=== PATIENT | male | born 1960 | race Caucasian/White ===

== ENCOUNTER 2016-07-28 22:02 | Emergency (ER) | payer SELFPAY ==
[~2016-07-28] VITALS: Ht 177.8 cm; Wt 90.7 kg
[~2016-07-28 22:02] MED LIST: ACET-868 PO; ASPI81TA2 PO; GABA300C PO; HYDR-3326 PO; NITR0.4T6 SL
[2016-07-28 22:18] VITALS: BP 110/67
== END 2016-07-28 22:36 | disposition home or self-care (01) ==
LOC: ER 22:05
DX: F10.10 Alcohol abuse, uncomplicated (principal); I10 Essential (primary) hypertension; F17.200 Nicotine dependence, unspecified, uncomplicated; Z88.0 Allergy status to penicillin; Z98.890 Other specified postprocedural states; Z59.0 Homelessness; Z79.82 Long term (current) use of aspirin
CPT/HCPCS: 99281; A4606; Z7610; Z7502

== ENCOUNTER 2016-07-31 00:52 | Emergency (ER) | payer SELFPAY ==
[~2016-07-31] VITALS: Ht 177.8 cm; Wt 77.1 kg
[2016-07-31 01:31] VITALS: BP 117/55
[2016-07-31] MEDS ORDERED: ACYCLOVIR 200 MG CAPSULE ONE (01:57)
[2016-07-31] MEDS ORDERED: ACYCLOVIR 200 MG CAPSULE PO ONE (02:00)
== END 2016-07-31 05:51 | disposition home or self-care (01) ==
LOC: ER 00:59
DX: F10.129 Alcohol abuse with intoxication, unspecified (principal); B02.9 Zoster without complications; F10.20 Alcohol dependence, uncomplicated; I10 Essential (primary) hypertension; F17.200 Nicotine dependence, unspecified, uncomplicated; Z88.0 Allergy status to penicillin; Z79.82 Long term (current) use of aspirin
CPT/HCPCS: 99283; A4606; Z7610

== ENCOUNTER 2016-09-19 03:01 | Emergency (ER) | payer SELFPAY ==
[~2016-09-19] VITALS: Ht 167.6 cm; Wt 72.6 kg
[2016-09-19 03:01] VITALS: BP 142/95
--- NOTE | 2016-09-19 03:40 | NUR ---
Patient eloped from facility. ER MD notified.
== END 2016-09-19 03:42 | disposition home or self-care (01) ==
LOC: ER 03:03
DX: M79.675 Pain in left toe(s) (principal); Z79.82 Long term (current) use of aspirin
CPT/HCPCS: 99281; A4606; Z7610; Z7502

== ENCOUNTER 2016-09-21 23:35 | Emergency (ER) | payer SELFPAY ==
[~2016-09-21] VITALS: Ht 177.8 cm; Wt 72.6 kg
[2016-09-21 23:47] VITALS: BP 146/91
[2016-09-22] MEDS ORDERED: ACETAMINOPHEN 325 MG TABLET PO ONE (00:30)
[2016-09-22] MEDS ORDERED: ACETAMINOPHEN ES 500 MG TABLET ONE (00:31)
== END 2016-09-22 00:54 | disposition home or self-care (01) ==
LOC: ER 23:38
DX: M79.672 Pain in left foot (principal); M79.675 Pain in left toe(s); F10.10 Alcohol abuse, uncomplicated; I10 Essential (primary) hypertension; F17.200 Nicotine dependence, unspecified, uncomplicated; Z88.0 Allergy status to penicillin; Z79.82 Long term (current) use of aspirin
CPT/HCPCS: 99282; A4606; Z7610

== ENCOUNTER 2016-12-08 09:27 | Emergency (ER) | payer MEDICAID ==
[~2016-12-08] VITALS: Ht 172.7 cm; Wt 74.8 kg
--- NOTE | 2016-12-08 09:30 | NUR ---
PATIENT BIB RA D/T ETOH. PATIENT IS A/O X 1-2. BREATHING EVEN AND UNLABORED. NO SOB. VITALS STABLE. SAFETY AND COMFORT MEASURES IN PLACE. AWAITING MD ORDERS.
--- NOTE | 2016-12-08 12:45 | NUR ---
(pt. ambulatory with a steady gait. PT. VERBALIZED UNDERSTANDING OF AFTERCARE INSTRUCTIONS.Patient discharged to home in stable condition. Written and verbal after care instructions given. Patient verbalizes understanding of instruction.
[2016-12-08 13:27] VITALS: BP 120/58
== END 2016-12-08 13:29 | disposition home or self-care (01) ==
LOC: ER 09:29
DX: F10.129 Alcohol abuse with intoxication, unspecified (principal); G89.29 Other chronic pain; I10 Essential (primary) hypertension; Z79.82 Long term (current) use of aspirin; Z88.0 Allergy status to penicillin; F17.200 Nicotine dependence, unspecified, uncomplicated
CPT/HCPCS: 99283; A4606; Z7610

== ENCOUNTER 2016-12-11 22:50 | Emergency (ER) | payer MEDICAID ==
--- NOTE | 2016-12-11 23:19 | NUR ---
PT CALLED IN LOBBY SECURITY STATES PT WALKED OUT WITH A STEADY GAIT AND STATED HE DECIDED NOT TO BE SEEN
== END 2016-12-11 23:20 | disposition left against medical advice (07) ==
LOC: ER 22:50
DX: Z53.21 Procedure and treatment not carried out due to patient leaving prior to being seen by health care provider (principal)

== ENCOUNTER 2017-01-29 23:28 | Emergency (ER) | payer MEDICAID ==
[~2017-01-29] VITALS: Ht 172.7 cm; Wt 74.8 kg
[2017-01-30 05:14] VITALS: BP 129/77
--- NOTE | 2017-01-30 05:15 | NUR ---
Patient given written and verbal discharge instructions. Patient verbalizes understanding of instructions. Patient is ambulatory with steady gait. Refuses offer of assisted placement. Patient given list of available shelters in surrounding area. VSS, NAD noted on DC. Denies complaint on DC.
== END 2017-01-30 05:16 | disposition home or self-care (01) ==
LOC: ER 23:30
DX: F10.20 Alcohol dependence, uncomplicated (principal); I10 Essential (primary) hypertension; R79.89 Other specified abnormal findings of blood chemistry; F17.200 Nicotine dependence, unspecified, uncomplicated; Z79.82 Long term (current) use of aspirin; Z88.0 Allergy status to penicillin
CPT/HCPCS: 82962; 99283; A4606; Z7610

== ENCOUNTER 2017-03-07 09:38 | Emergency (ER) | payer MEDICAID, OTHER ==
[~2017-03-07] VITALS: Ht 172.7 cm; Wt 77.1 kg
--- NOTE | 2017-03-07 09:48 | NUR ---
PT BIB RA IN [employer] S/P WITNESSED SZ. NO KO. NO ORAL TRAUMA. C/O MODERATE HEADACHE. A/OX3. SKIN WARM NONDIAPHORETIC. RESP EVEN UNLABORED. REPORTS LAST DRINK YESTERDAY APPROX 1700. LAST DOSE OF DILANTIN LAST NIGHT. IN ER BED 08.
[2017-03-07 10:09] LABS: BASOPHILS # (AUTO) 0.1 /CMM (0.0-0.2); BASOPHILS % (AUTO) 1.5 % (0.0-2.0); EOSINOPHILS # (AUTO) 0.3 /CMM (0.0-0.7); HEMATOCRIT 38 % (39-51); LYMPHOCYTES % (AUTO) 14.7 % (20.0-44.0); MEAN CORPUSCULAR HEMOGLOBIN 35 PG (26.0-33.0); MEAN CORPUSCULAR HGB CONC 34 g/dl (31.0-36.0); MEAN CORPUSCULAR VOLUME 102 fL (80-96); MONOCYTES # (AUTO) 0.8 /CMM (0.1-1.30); MONOCYTES % (AUTO) 12.5 % (2.0-12.0); NEUTROPHILS # (AUTO) 4.5 /CMM (1.8-8.9); NEUTROPHILS % (AUTO) 67.3 % (43.0-81.0); PLATELET COUNT (AUTO) 355 /CMM (150-450); RDW COEFFICIENT OF VARIATION 12.8 (11.5-15.0); RED BLOOD CELL COUNT(AUTO) 3.76 MIL/uL (4.5-6.0); WHITE BLOOD COUNT (AUTO) 6.7 K/uL (4.3-11.0)
[2017-03-07 10:18] LABS: CALCIUM, SERUM 8.5 mg/dL (8.5-10.1); CREATININE 0.8 mg/dL (0.6-1.3); POTASSIUM 4.9 mmol/L (3.5-5.1)
[2017-03-07 10:22] LABS: PHENYTOIN (DILANTIN) 1.9 ug/ml (10.0-20.0)
[2017-03-07 10:24] LABS: ALBUMIN 3.3 g/dL (3.4-5.0); BILIRUBIN,DIRECT 0.1 mg/dL (0.0-0.2); BILIRUBIN,TOTAL 0.2 mg/dL (0.2-1.0); TOTAL PROTEIN, SERUM 7.1 g/dL (6.4-8.2)
--- NOTE | 2017-03-07 11:20 | NUR ---
PT APPEARS SHAKY BUT NO SEIZURE SYMPTOMS ARE NOTED AT THIS TIME. PT TO BE MEDICATED ORDERED.
--- NOTE | 2017-03-07 12:00 | NUR ---
NAD NOTED. RESTING QUIETLY. ALL NEEDS ATTENDED TO.
--- NOTE | 2017-03-07 13:15 | NUR ---
IV removed. Catheter intact and site benign. Pressure and 4x4 applied to site. No bleeding noted. Patient discharged to home in stable condition. Written and verbal after care instructions given. Patient verbalizes understanding of instruction. AMBULATORY WITH STEADY GAIT.
[2017-03-07 13:18] VITALS: BP 133/79
== END 2017-03-07 13:19 ==
LOC: ER 09:40
DX: R56.9 Unspecified convulsions (principal); R79.1 Abnormal coagulation profile; F10.10 Alcohol abuse, uncomplicated; I10 Essential (primary) hypertension; Z88.0 Allergy status to penicillin; F17.200 Nicotine dependence, unspecified, uncomplicated; Z79.82 Long term (current) use of aspirin
CPT/HCPCS: 36415; 80048; 80076; 80185; 85025; 93005; 96361; 96365; 96375; 99285; A4606; J1165; J2060; J7030 ×2; Z7610

== ENCOUNTER 2017-03-30 20:12 | Emergency (ER) | payer OTHER ==
[~2017-03-30] VITALS: Ht 172.7 cm; Wt 61.2 kg
[2017-03-30 21:03] VITALS: BP 136/78
[2017-03-30] MEDS ORDERED: diphenhydrAMINE HCL 50 MG CAPSULE ONE (21:08)
--- NOTE | 2017-03-30 21:11 | NUR ---
50MG OF BENHYDRL PO WAS GIVEN, VERBAL ORDER FROM MD SCHAEFFER
[2017-03-30] MEDS ORDERED: diphenhydrAMINE HCL ELIX 25 MG/10 ML UDC PO ONE (21:30)
== END 2017-03-30 21:24 | disposition home or self-care (01) ==
LOC: ER 20:15
DX: R53.81 Other malaise (principal); I10 Essential (primary) hypertension; F17.200 Nicotine dependence, unspecified, uncomplicated; F10.10 Alcohol abuse, uncomplicated; Z59.0 Homelessness; Z79.82 Long term (current) use of aspirin; Z88.0 Allergy status to penicillin
CPT/HCPCS: 99282; A4606; Q0163; Z7610

== ENCOUNTER 2017-05-21 20:58 | Emergency (ER) | payer OTHER ==
[~2017-05-21] VITALS: Ht 175.3 cm; Wt 72.6 kg
[~2017-05-21 20:58] MED LIST changes: +ASPI-1169 PO; -ASPI81TA2 PO; +NITR0.4T48 SL; -NITR0.4T6 SL
--- NOTE | 2017-05-21 21:00 | NUR ---
PT BIBRA FROM THE STREETS TO ER BED 16. PER REPORT ETOH, NO OBVIOUS TRAUMA NOTED. PT RESPOND TO PAINFUUL STIMULI. GOWNED AND PLACED ON MONITOR W/ STABLE VITALS NOTED. AWAITING MD TERRELL.
--- NOTE | 2017-05-21 22:20 | NUR ---
DR BHAKTA AT BEDSIDE FOR EVAL.
--- NOTE | 2017-05-21 23:41 | NUR ---
REPORT TO CHARGE NURSE ELMO FOR KELLI.
--- NOTE | 2017-05-22 01:02 | NUR ---
PT RESTING QUIETLY, AROUSES TO VOICE. VSS/RESP EVEN UNLABORED.
--- NOTE | 2017-05-22 03:06 | NUR ---
PT RESTING QUIETLY, AROUSES TO VOICE. VSS/RESP EVEN UNLABORED.
--- NOTE | 2017-05-22 05:05 | NUR ---
PT RESTING QUIETLY, AROUSES TO VOICE. VSS/RESP EVEN UNLABORED.
--- NOTE | 2017-05-22 06:45 | NUR ---
PT OFFERED WATER AND ASKED IF HE NEEDED TO USE THE RESTROOM, REFUSED. VSS/RESP EVEN UNLABORED. AROUSES TO VOICE.
[2017-05-22 07:05] VITALS: BP 97/59
--- NOTE | 2017-05-22 07:05 | NUR ---
Patient discharged to home in stable condition. Written and verbal after care instructions given. Patient verbalizes understanding of instruction.
== END 2017-05-22 07:06 | disposition home or self-care (01) ==
LOC: ER 21:01
DX: F10.129 Alcohol abuse with intoxication, unspecified (principal); I10 Essential (primary) hypertension; Z79.82 Long term (current) use of aspirin; Z88.0 Allergy status to penicillin
CPT/HCPCS: 82962-TC; A4606; Z7610

== ENCOUNTER 2017-06-07 00:09 | Emergency (ER) | payer OTHER ==
[~2017-06-07] VITALS: Ht 170.2 cm; Wt 68.5 kg
[2017-06-07 01:10] VITALS: BP 138/85
--- NOTE | 2017-06-07 01:10 | NUR ---
STATES "I JUST WANNA SLEEP HERE AND LATER IN THE MORNING I WILL LEAVE; DONT WANNA SEE A DOCTOR". DENIES ANY SX'S AT THIS TIME.
== END 2017-06-07 01:53 | disposition left against medical advice (07) ==
LOC: ER 00:12
DX: Z53.21 Procedure and treatment not carried out due to patient leaving prior to being seen by health care provider (principal)
CPT/HCPCS: A4606; Z7610

== ENCOUNTER 2017-09-17 01:58 | Emergency (ER) | payer OTHER ==
[~2017-09-17] VITALS: Ht 172.7 cm; Wt 72.6 kg
[~2017-09-17 01:58] MED LIST changes: -HYDR-3326 PO; +HYDR-3974 PO
--- NOTE | 2017-09-17 02:00 | NUR ---
57 YO MALE PT BIBA#[address], PT +ETOH, PATIENT ASSISTED TO ER BED, SKIN WARM AND DRY, RESP EVEN AND UNLABORED. APTIENT PLACED ON TURBINE ASSEMBLER. AWAITING ORDERS FROM PROVIDER, WILL CONTINUE
--- NOTE | 2017-09-17 07:05 | NUR ---
PATIENT RESTING IN ER BED, NO DISTRESS NOTED
--- NOTE | 2017-09-17 10:55 | NUR ---
PATIENT IS AAOX3, AMBULATES WITH STEADY GAIT. PATIENT STATES "I'M READY TO GO". NEURO INTACT.
--- NOTE | 2017-09-17 10:58 | NUR ---
Patient discharged to home in stable condition. Written and verbal after care instructions given. Patient verbalizes understanding of instruction.
[2017-09-17 10:59] VITALS: BP 138/88
== END 2017-09-17 11:00 | disposition home or self-care (01) ==
LOC: ER 02:01
DX: F10.129 Alcohol abuse with intoxication, unspecified (principal); R41.0 Disorientation, unspecified; F17.200 Nicotine dependence, unspecified, uncomplicated; I10 Essential (primary) hypertension; Z79.82 Long term (current) use of aspirin; Z88.0 Allergy status to penicillin
CPT/HCPCS: 99283; A4606; Z7610

== ENCOUNTER 2017-10-12 01:07 | Emergency (ER) | payer OTHER ==
[~2017-10-12] VITALS: Ht 170.2 cm; Wt 74.8 kg
[2017-10-12 01:17] VITALS: BP 139/80
[2017-10-12] MEDS ORDERED: HYDROCODONE/APAP 5/325MG 1 EACH TABLET PO ONE (01:30)
[2017-10-12] MEDS ORDERED: HYDROCODONE/APAP 5/325MG 1 EACH TABLET ONE (01:34)
[2017-10-12 01:57] LABS: CALCIUM, SERUM 8.4 mg/dL (8.5-10.1); CREATININE 0.7 mg/dL (0.6-1.3); POTASSIUM 3.8 mmol/L (3.5-5.1)
[2017-10-12 02:04] LABS: ALBUMIN 3.6 g/dL (3.4-5.0); BILIRUBIN,DIRECT 0.1 mg/dL (0.0-0.2); BILIRUBIN,TOTAL 0.2 mg/dL (0.2-1.0); TOTAL PROTEIN, SERUM 7.4 g/dL (6.4-8.2)
[2017-10-12 02:07] LABS: BASOPHILS # (AUTO) 0.1 /CMM (0.0-0.2); BASOPHILS % (AUTO) 0.8 % (0.0-2.0); HEMATOCRIT 38 % (39-51); LYMPHOCYTES # (AUTO) 3.5 /CMM (0.8-4.8); LYMPHOCYTES % (AUTO) 34.3 % (20.0-44.0); MEAN CORPUSCULAR HGB CONC 34 g/dl (31.0-36.0); MEAN CORPUSCULAR VOLUME 103 fL (80-96); MONOCYTES # (AUTO) 1.1 /CMM (0.1-1.30); MONOCYTES % (AUTO) 11.2 % (2.0-12.0); NEUTROPHILS # (AUTO) 5.1 /CMM (1.8-8.9); NEUTROPHILS % (AUTO) 49.7 % (43.0-81.0); PLATELET COUNT (AUTO) 246 /CMM (150-450); RDW COEFFICIENT OF VARIATION 16.1 (11.5-15.0); RED BLOOD CELL COUNT(AUTO) 3.69 MIL/uL (4.5-6.0); WHITE BLOOD COUNT (AUTO) 10.2 K/uL (4.3-11.0)
== END 2017-10-12 03:00 | disposition home or self-care (01) ==
LOC: ER 01:11
DX: S43.401A Unspecified sprain of right shoulder joint, initial encounter (principal); F10.229 Alcohol dependence with intoxication, unspecified; Z71.6 Tobacco abuse counseling; I10 Essential (primary) hypertension; I48.91 Unspecified atrial fibrillation; Z79.82 Long term (current) use of aspirin; Z88.0 Allergy status to penicillin; X58.XXXA Exposure to other specified factors, initial encounter; Y93.55 Activity, bike riding; Y92.89 Other specified places as the place of occurrence of the external cause; Y99.8 Other external cause status
CPT/HCPCS: 36415; 73030-TC; 80048-TC; 80076-TC; 85025-TC; A4606; G0480; Z7610

== ENCOUNTER 2017-11-03 22:56 | Emergency (ER) | payer OTHER ==
[~2017-11-03] VITALS: Ht 172.7 cm; Wt 72.6 kg
--- NOTE | 2017-11-03 23:07 | NUR ---
RN NOTES PT IN HOSP BED. A/O X2 CONFUSED. SMELLS OF ETOH. NEGATIVE DISTRESS. NEG SOB. STABLE CONDITION. VSS. WILL CONTINUE TO MONITOR. ALL SAFETY MEASURES IN PLACE. CALL LIGHT WITHIN REACH.
--- NOTE | 2017-11-04 01:30 | NUR ---
PT RESTING WELL. NEGATIVE DISTRESS. NEG SOB. SEMIFOWLERS POSITION. VSS. A/OX4. WILL CONTINUE TO MONITOR. ALL SAFETY MEASURES IN PLACE. CALL LIGHT WITHIN REACH.
--- NOTE | 2017-11-04 03:30 | NUR ---
PT A/OX2. RESTING WELL. NEG DISTRESS. VSS. NEG SOB. STABLE CONDITION. SAFETY MEASURES IN PLACE. CALL LIGHT WITHIN REACH.
--- NOTE | 2017-11-04 04:53 | NUR ---
PT STABLE CONDITION. CONTIUES TO REST WELL. A/O X2 CONFUSED. NEG SIGNS OF DISTRESS. VSS. WILL CONTINUE TO MONITOR. SAFETY MEASURES IN PLACE. CALL LIGHT WITHIN REACH.
--- NOTE | 2017-11-04 06:45 | NUR ---
RN NOTES PT IN HOSP BED RESTING WELL. A/O X2 CONFUSED. NEGATIVE DISTRESS. NEG SOB. STABLE CONDITION. VSS. WILL CONTINUE TO MONITOR. ALL SAFETY MEASURES IN PLACE. CALL LIGHT WITHIN REACH.
[2017-11-04 09:30] VITALS: BP 133/77
--- NOTE | 2017-11-04 10:25 | NUR ---
Patient discharged to home in stable condition. Written and verbal after care instructions given. Patient verbalizes understanding of instruction.
== END 2017-11-04 10:27 | disposition home or self-care (01) ==
LOC: ER 22:58
DX: F10.129 Alcohol abuse with intoxication, unspecified (principal); F17.200 Nicotine dependence, unspecified, uncomplicated; R79.89 Other specified abnormal findings of blood chemistry; I10 Essential (primary) hypertension; Z88.0 Allergy status to penicillin; Z79.82 Long term (current) use of aspirin
CPT/HCPCS: 82962-TC; A4606; Z7610

== ENCOUNTER 2017-11-17 01:51 | Emergency (ER) | payer OTHER ==
--- NOTE | 2017-11-17 02:38 | NUR ---
AMBULATED TO RESTROOM WITH STEADY GAIT. STATES "AM OK NOW; JUST GONNA SLEEP HERE"
== END 2017-11-17 02:39 | disposition left against medical advice (07) ==
LOC: ER 01:56
DX: M54.2 Cervicalgia (principal); Z53.21 Procedure and treatment not carried out due to patient leaving prior to being seen by health care provider
CPT/HCPCS: Z7610

== ENCOUNTER 2017-12-22 00:06 | Emergency (ER) | payer OTHER ==
[~2017-12-22] VITALS: Ht 170.2 cm; Wt 79.4 kg
[2017-12-22 00:08] VITALS: BP 102/46
[2017-12-22] MEDS ORDERED: LIDOCAINE VISCOUS 2% UD 15 ML UDC ONE (00:50)
[2017-12-22] MEDS ORDERED: LIDOCAINE VISCOUS 2% UD 15 ML UDC MM ONE (01:00)
== END 2017-12-22 01:42 | disposition home or self-care (01) ==
LOC: ER 00:10
DX: H61.23 Impacted cerumen, bilateral (principal); I10 Essential (primary) hypertension; F17.200 Nicotine dependence, unspecified, uncomplicated; Z79.82 Long term (current) use of aspirin; Z88.0 Allergy status to penicillin
CPT/HCPCS: 69209; 99282; A4606; Z7610

== ENCOUNTER 2018-06-23 23:33 | Emergency (ER) | payer MEDICAID, OTHER ==
[~2018-06-23] VITALS: Ht 170.2 cm; Wt 83.9 kg
--- NOTE | 2018-06-24 00:11 | NUR ---
CALLED IN [facility], NO ANSWER.
--- NOTE | 2018-06-24 01:30 | NUR ---
CALLED IN [facility], NO ANSWER.
[2018-06-24 02:48] VITALS: BP 138/87
== END 2018-06-24 05:49 | disposition home or self-care (01) ==
LOC: ER 23:36
DX: M54.12 Radiculopathy, cervical region (principal); F10.129 Alcohol abuse with intoxication, unspecified; I10 Essential (primary) hypertension; D64.9 Anemia, unspecified; E78.5 Hyperlipidemia, unspecified; F17.200 Nicotine dependence, unspecified, uncomplicated; Z88.0 Allergy status to penicillin; Z59.0 Homelessness; Z79.82 Long term (current) use of aspirin; Z79.899 Other long term (current) drug therapy; Y90.9 Presence of alcohol in blood, level not specified
CPT/HCPCS: 72050; 99283; A4606; Z7610

== ENCOUNTER 2018-08-30 03:17 | Emergency (ER) | payer OTHER ==
--- NOTE | 2018-08-30 04:01 | NUR ---
CALLED PATIENT NAME THREE TIMES, NO RESPONSE. NO PT IN WAITING ROOM. WILL TRY AGAIN AT A LATER TIME
--- NOTE | 2018-08-30 04:48 | NUR ---
CALLED PT'S NAME, PT NOTED SITTING AND SLEEPING IN WAITING ROOM. PT WAS ASKED IF HE WANTS TO BE TRIAGED AND SEEN BY MD. PT SHOOK HIS HEAD AND REMAINED SLEEPING IN WAITING ROOM. FRAMING MILL SUPERVISOR AND MD MADE AWARE.
--- NOTE | 2018-08-30 04:48 | NUR ---
PT REFUSED TO BE TRIAGED
== END 2018-08-30 04:55 | disposition left against medical advice (07) ==
LOC: ER 03:17
DX: Z53.21 Procedure and treatment not carried out due to patient leaving prior to being seen by health care provider (principal)

== ENCOUNTER 2018-09-02 22:16 | Emergency (ER) | payer OTHER ==
--- NOTE | 2018-09-02 22:47 | NUR ---
CALLED IN WAITING ROOM, NO ANSWER.
--- NOTE | 2018-09-02 23:42 | NUR ---
PATIENT CALLED, NO ONE IN THE WAITING ROOM.
--- NOTE | 2018-09-03 01:11 | NUR ---
PATIENT NOT IN THE WAITING ROOM.
== END 2018-09-03 01:13 | disposition left against medical advice (07) ==
LOC: ER 22:29
DX: Z53.21 Procedure and treatment not carried out due to patient leaving prior to being seen by health care provider (principal)

== ENCOUNTER 2018-09-28 01:56 | Emergency (ER) | payer OTHER ==
[~2018-09-28] VITALS: Ht 170.2 cm; Wt 84.4 kg
[2018-09-28 02:08] VITALS: BP 134/76
--- NOTE | 2018-09-28 02:31 | NUR ---
BG 94. MD AWARE.
== END 2018-09-28 06:59 | disposition home or self-care (01) ==
LOC: ER 01:59
DX: F10.129 Alcohol abuse with intoxication, unspecified (principal); I10 Essential (primary) hypertension; F17.200 Nicotine dependence, unspecified, uncomplicated; Y90.9 Presence of alcohol in blood, level not specified; Z88.0 Allergy status to penicillin; Z59.0 Homelessness; Z79.82 Long term (current) use of aspirin
CPT/HCPCS: 82962-TC

== ENCOUNTER 2018-10-09 01:40 | Emergency (ER) | payer OTHER ==
[~2018-10-09] VITALS: Ht 172.7 cm; Wt 83.9 kg
--- NOTE | 2018-10-09 02:00 | NUR ---
BIB SELF FROM STREET. AAOX3. NAD. BREATHING EVEN AND UNLABORED. AMBULATORY. CAME IN FOR HEADACHE 01/05 X 2DAYS. PT APPEARS INTOXICATED. PT STATES THAT HE HAD 2 DRINKS LAST NIGHT. PT TO ER BED 6. AWAITING MD TERRELL
[2018-10-09] MEDS ORDERED: HYDROCODONE/APAP 10/325MG 1 EA TABLET ONE (02:13)
[2018-10-09] MEDS ORDERED: HYDROCODONE/APAP 10/325MG 1 EA TABLET PO ONE (02:30)
--- NOTE | 2018-10-09 03:13 | NUR ---
PT IN BED SLEEPING. NAD NOTED.
--- NOTE | 2018-10-09 05:00 | NUR ---
PT AMBULATED TO BATHROOM WITHOUT ASSISTANCE
--- NOTE | 2018-10-09 06:10 | NUR ---
Patient discharged to home in stable condition. Written and verbal after care instructions given. Patient verbalizes understanding of instruction. Pt ambulatory with a steady gait
[2018-10-09 06:13] VITALS: BP 100/70
== END 2018-10-09 06:14 | disposition home or self-care (01) ==
LOC: ER 01:51
DX: F10.229 Alcohol dependence with intoxication, unspecified (principal); R51 Headache; F17.200 Nicotine dependence, unspecified, uncomplicated; I10 Essential (primary) hypertension; Z88.0 Allergy status to penicillin; Z59.0 Homelessness; Z79.82 Long term (current) use of aspirin; Z79.899 Other long term (current) drug therapy; Y90.9 Presence of alcohol in blood, level not specified

== ENCOUNTER 2018-10-31 23:26 | Emergency (ER) | payer OTHER ==
--- NOTE | 2018-11-01 00:43 | NUR ---
CALLED PT THREE TIMES. NO RESPONSE IN WAITING ROOM.
--- NOTE | 2018-11-01 01:22 | NUR ---
CALLED PT THREE TIMES. NO RESPONSE IN WAITING ROOM.
--- NOTE | 2018-11-01 02:04 | NUR ---
CALLED PT THREE TIMES. NO RESPONSE IN WAITING ROOM.
== END 2018-11-01 02:27 | disposition home or self-care (01) ==
LOC: ER 23:26
DX: Z53.21 Procedure and treatment not carried out due to patient leaving prior to being seen by health care provider (principal)

== ENCOUNTER 2018-11-07 07:30 | Emergency (ER) | payer OTHER ==
[~2018-11-07] VITALS: Ht 167.6 cm; Wt 77.1 kg
[2018-11-07 07:36] VITALS: BP 148/98
--- NOTE | 2018-11-07 07:40 | NUR ---
SEEN AND EXAMINED BY
== END 2018-11-07 08:10 | disposition home or self-care (01) ==
LOC: ER 07:33
DX: L98.8 Other specified disorders of the skin and subcutaneous tissue (principal); F10.20 Alcohol dependence, uncomplicated; I10 Essential (primary) hypertension; I48.91 Unspecified atrial fibrillation; F17.200 Nicotine dependence, unspecified, uncomplicated; Y90.9 Presence of alcohol in blood, level not specified; Z59.0 Homelessness; Z88.0 Allergy status to penicillin; Z79.82 Long term (current) use of aspirin

== ENCOUNTER 2018-11-08 02:22 | Emergency (ER) | payer OTHER ==
[~2018-11-08] VITALS: Ht 175.3 cm; Wt 81.6 kg
--- NOTE | 2018-11-08 05:14 | NUR ---
PT SLEEPING IN [facility]. NO SIGNS OF DISTRESS NOTED. PT VITAL SIGNS WITHIN NORMAL LIMITS. WILL CONT TO MONITOR PT.
--- NOTE | 2018-11-08 08:52 | NUR ---
PATIENT SLEEPING ON BED. NO ACUTE DISTRESS. WILL CONTINUE TO MONITOR
[2018-11-08 12:25] VITALS: BP 132/80
--- NOTE | 2018-11-08 12:30 | NUR ---
Patient discharged to home in stable condition. Written and verbal after care instructions given. Patient verbalizes understanding of instruction. Patient refused to have any referrals. refused to be arranged with transportation. aware and ok
== END 2018-11-08 12:30 | disposition home or self-care (01) ==
LOC: ER 02:27
DX: F10.129 Alcohol abuse with intoxication, unspecified (principal); I10 Essential (primary) hypertension; F17.200 Nicotine dependence, unspecified, uncomplicated; Z88.0 Allergy status to penicillin; Z59.0 Homelessness; Z79.82 Long term (current) use of aspirin; Z79.899 Other long term (current) drug therapy; Y90.9 Presence of alcohol in blood, level not specified

== ENCOUNTER 2018-11-10 19:41 | Emergency (ER) | payer OTHER ==
[~2018-11-10] VITALS: Ht 170.2 cm; Wt 80.7 kg
[2018-11-10 20:27] LABS: BASOPHILS # (AUTO) 0.2 /CMM (0.0-0.2); BASOPHILS % (AUTO) 1.7 % (0.0-2.0); HEMATOCRIT 40 % (39-51); HEMOGLOBIN 13.7 g/dL (13.5-17.5); LYMPHOCYTES # (AUTO) 2.5 /CMM (0.8-4.8); LYMPHOCYTES % (AUTO) 26.2 % (20.0-44.0); MEAN CORPUSCULAR HGB CONC 34 g/dl (31.0-36.0); MEAN CORPUSCULAR VOLUME 101 fL (80-96); MONOCYTES # (AUTO) 1.2 /CMM (0.1-1.30); MONOCYTES % (AUTO) 12.1 % (2.0-12.0); NEUTROPHILS # (AUTO) 5.5 /CMM (1.8-8.9); PLATELET COUNT (AUTO) 269 /CMM (150-450); RED BLOOD CELL COUNT(AUTO) 3.94 MIL/uL (4.5-6.0); WHITE BLOOD COUNT (AUTO) 9.7 K/uL (4.3-11.0)
[2018-11-10] MEDS ORDERED: MAG HYDROX/AL HYDROX/SIMETH 30 ML UDC PO ONE (20:30)
[2018-11-10] MEDS ORDERED: LORAZEPAM 1 MG TABLET PO ONE (20:30)
--- NOTE | 2018-11-10 20:30 | NUR ---
BIB SELF. AAOX3. INTOXICATED. BREATHING EVEN AND UNLABORED. AMBULATORY. C/O SLEEPLESSNESS X 2 DAYS. DENIES CP. -N/V/D. TO ER BED 15. AWAITING MD FOR EVAL.
[2018-11-10 20:35] LABS: CALCIUM, SERUM 8.2 mg/dL (8.5-10.1); CREATININE 0.8 mg/dL (0.6-1.3); POTASSIUM 3.9 mmol/L (3.5-5.1)
[2018-11-10 20:45] LABS: ALBUMIN 3.2 g/dL (3.4-5.0); BILIRUBIN,DIRECT 0.1 mg/dL (0.0-0.2); BILIRUBIN,TOTAL 0.3 mg/dL (0.2-1.0); TOTAL PROTEIN, SERUM 7.6 g/dL (6.4-8.2)
--- NOTE | 2018-11-11 04:22 | NUR ---
PT IN BED SLEEPING. NAD NOTED.
--- NOTE | 2018-11-11 05:53 | NUR ---
PT OK TO DISCHARGE PER DR MARTINEZ. Patient discharged to home in stable condition. Written and verbal after care instructions given. Patient verbalizes understanding of instruction.Patient is awake and alert to self, day, and place. PT ambulatory with a steady gait
[2018-11-11 05:55] VITALS: BP 132/80
== END 2018-11-11 05:55 | disposition home or self-care (01) ==
LOC: ER 19:45
DX: R10.84 Generalized abdominal pain (principal); F10.129 Alcohol abuse with intoxication, unspecified; I10 Essential (primary) hypertension; F17.200 Nicotine dependence, unspecified, uncomplicated; Z88.0 Allergy status to penicillin; Z59.0 Homelessness; Z79.82 Long term (current) use of aspirin; Z79.899 Other long term (current) drug therapy; Y90.8 Blood alcohol level of 240 mg/100 ml or more
CPT/HCPCS: 36415; 80048-TC; 80076-TC; 83690-TC; 85025-TC; G0480

== ENCOUNTER 2018-11-14 22:45 | Emergency (ER) | payer OTHER | END 2018-11-15 01:48 | disposition left against medical advice (07) | LOC: ER 22:48 | DX: Z53.21 Procedure and treatment not carried out due to patient leaving prior to being seen by health care provider (principal) ==

== ENCOUNTER 2018-12-10 15:17 | Emergency (ER) | payer OTHER ==
[~2018-12-10] VITALS: Ht 172.7 cm; Wt 88.5 kg
[2018-12-10] MEDS ORDERED: ONDANSETRON 4 MG TAB.RAPDIS ONE (15:53)
[2018-12-10] MEDS ORDERED: LOPERAMIDE HCL (2 MG CAP) 2 MG CAPSULE PO ONE (15:53)
[2018-12-10] MEDS: LOPERAMIDE HCL (2 MG CAP) 2 MG CAPSULE PO ONE (15:58)
[2018-12-10] MEDS: ONDANSETRON 4 MG TAB.RAPDIS SL ONE (15:58)
--- NOTE | 2018-12-10 15:58 | NUR ---
PT REC'D MEDICATION ORDERED. PT WANTED TO LEAVE. MD IS AWARE. Patient discharged to home in stable condition. Written and verbal after care instructions given. Patient verbalizes understanding of instruction AND RX. PT AMBULATED OUT WITH A STEADY GAIT. VSS
[2018-12-10 16:01] VITALS: BP 123/70
== END 2018-12-10 16:03 | disposition home or self-care (01) ==
LOC: ER 15:17
DX: R11.2 Nausea with vomiting, unspecified (principal); R19.7 Diarrhea, unspecified; F10.129 Alcohol abuse with intoxication, unspecified; I10 Essential (primary) hypertension; F17.200 Nicotine dependence, unspecified, uncomplicated; Z88.0 Allergy status to penicillin; Z59.0 Homelessness; Z79.82 Long term (current) use of aspirin; Z79.899 Other long term (current) drug therapy; Y90.9 Presence of alcohol in blood, level not specified
CPT/HCPCS: 99283; Q0162

== ENCOUNTER 2018-12-21 03:56 | Emergency (ER) | payer OTHER ==
--- NOTE | 2018-12-21 04:16 | NUR ---
CALLED PT IN WAITING ROOM. NO RESPONSE. WILL FOLLOW UP.
--- NOTE | 2018-12-21 04:50 | NUR ---
CALLED PT IN WAITING ROOM. NO RESPONSE. WILL FOLLOW UP.
--- NOTE | 2018-12-21 05:18 | NUR ---
CALLED PT IN WAITING ROOM. NO RESPONSE.
== END 2018-12-21 06:05 | disposition left against medical advice (07) ==
LOC: ER 04:02
DX: Z53.21 Procedure and treatment not carried out due to patient leaving prior to being seen by health care provider (principal)

== ENCOUNTER 2019-01-08 15:12 | Emergency (ER) | payer OTHER ==
[~2019-01-08] VITALS: Ht 172.7 cm; Wt 84.8 kg
[2019-01-08 15:28] VITALS: BP 111/75
[2019-01-08] MEDS ORDERED: IBUPROFEN 600 MG TABLET PO ONE ×2 (15:56→16:00)
[2019-01-08] MEDS ORDERED: ACETAMINOPHEN ES 500 MG TABLET ONE (15:56)
[2019-01-08] MEDS ORDERED: ACETAMINOPHEN ES 500 MG TABLET PO ONE (16:00)
== END 2019-01-08 16:03 | disposition home or self-care (01) ==
LOC: ER 15:12
DX: S93.491A Sprain of other ligament of right ankle, initial encounter (principal); M54.12 Radiculopathy, cervical region; I10 Essential (primary) hypertension; F17.200 Nicotine dependence, unspecified, uncomplicated; Z88.0 Allergy status to penicillin; Z60.2 Problems related to living alone; Z79.899 Other long term (current) drug therapy; Z79.82 Long term (current) use of aspirin; X50.1XXA Overexertion from prolonged static or awkward postures, initial encounter; Y93.89 Activity, other specified; Y92.89 Other specified places as the place of occurrence of the external cause; Y99.8 Other external cause status

== ENCOUNTER 2019-01-18 01:15 | Emergency (ER) | payer OTHER ==
[~2019-01-18] VITALS: Ht 167.6 cm; Wt 90.7 kg
--- NOTE | 2019-01-18 02:23 | NUR ---
TO BED 6 AMBULATORY C/O "I THINK I FELL AND HIT MY HEAD" PT REPORTS ETOH. PT AAOX4 NO ACUTE DISTRESS NOTED, RESP EVEN AND UNLABORED. PUPILS PERRLA. PT ABLE TO MOVE ALL EXTREMITIES WELL WITH BILATERAL EQUAL DOBIE MAN. ER MD AT BEDSIDE TO NIDHI PT.
--- NOTE | 2019-01-18 02:24 | NUR ---
CODY YUAN AT BEDSIDE TO NIDHI GILLESPIE.
--- NOTE | 2019-01-18 02:36 | NUR ---
PT TRASNPORTED TO RADIOLOGY FOR CT.
--- NOTE | 2019-01-18 05:40 | NUR ---
Patient discharged to home in stable condition. Written and verbal after care instructions given. Patient verbalizes understanding of instruction. ambulatory with a steady gait noted. pt aaox4 no acute distress noted, resp even and unlabored.
[2019-01-18 05:41] VITALS: BP 117/62
== END 2019-01-18 05:42 | disposition home or self-care (01) ==
LOC: ER 01:18
DX: R51 Headache (principal); I10 Essential (primary) hypertension; Z88.0 Allergy status to penicillin; F17.200 Nicotine dependence, unspecified, uncomplicated; Z60.2 Problems related to living alone; Z79.82 Long term (current) use of aspirin; Z79.899 Other long term (current) drug therapy; W19.XXXA Unspecified fall, initial encounter; Y93.89 Activity, other specified; Y92.89 Other specified places as the place of occurrence of the external cause; Y99.8 Other external cause status
CPT/HCPCS: 70450-TC; 82962-TC

== ENCOUNTER 2019-01-19 22:48 | Emergency (ER) | payer OTHER ==
[~2019-01-19] VITALS: Ht 172.7 cm; Wt 81.6 kg
[2019-01-19 23:30] VITALS: BP 111/75
--- NOTE | 2019-01-20 00:20 | NUR ---
Patient eloped from facility. ER MD notified.
== END 2019-01-20 01:23 | disposition left against medical advice (07) ==
LOC: ER 22:52
DX: F10.229 Alcohol dependence with intoxication, unspecified (principal); I10 Essential (primary) hypertension; F17.200 Nicotine dependence, unspecified, uncomplicated; Y90.9 Presence of alcohol in blood, level not specified; Z88.0 Allergy status to penicillin; Z60.2 Problems related to living alone; Z79.82 Long term (current) use of aspirin

== ENCOUNTER 2019-03-21 00:26 | Emergency (ER) | payer OTHER ==
[~2019-03-21] VITALS: Ht 171.4 cm; Wt 83.9 kg
--- NOTE | 2019-03-21 02:50 | NUR ---
bib self c/o difficulty breathing "i cant breath at night since they did a scope and biosy of my neck. pt aaox4 no acute distress noted, resp even and unlabored. pending er md pereira.
--- NOTE | 2019-03-21 04:46 | NUR ---
PT SEEN AND EXAMINED BY .
--- NOTE | 2019-03-21 05:00 | NUR ---
PT IS WHEELED TO CT SCAN VIA [facility]
--- NOTE | 2019-03-21 05:56 | NUR ---
Patient discharged to home in stable condition. Written and verbal after care instructions given. Patient verbalizes understanding of instruction. ambulatory with a steady gait noted.
[2019-03-21 06:21] VITALS: BP 125/68
== END 2019-03-21 06:21 | disposition home or self-care (01) ==
LOC: ER 00:29
DX: F10.129 Alcohol abuse with intoxication, unspecified (principal); R59.0 Localized enlarged lymph nodes; K11.5 Sialolithiasis; F17.200 Nicotine dependence, unspecified, uncomplicated; I10 Essential (primary) hypertension; Z88.0 Allergy status to penicillin; Z60.2 Problems related to living alone; Z79.899 Other long term (current) drug therapy; Z79.82 Long term (current) use of aspirin; Y90.9 Presence of alcohol in blood, level not specified
CPT/HCPCS: 70490-TC

== ENCOUNTER 2019-03-23 00:20 | Emergency (ER) | payer OTHER ==
[~2019-03-23] VITALS: Ht 172.7 cm; Wt 86.2 kg
[2019-03-23 00:42] VITALS: BP 132/76
== END 2019-03-23 02:26 | disposition home or self-care (01) ==
LOC: ER 00:23
DX: F10.10 Alcohol abuse, uncomplicated (principal); I10 Essential (primary) hypertension; G40.909 Epilepsy, unspecified, not intractable, without status epilepticus; F17.200 Nicotine dependence, unspecified, uncomplicated; Z88.0 Allergy status to penicillin; Z60.2 Problems related to living alone; Z79.899 Other long term (current) drug therapy; Z79.82 Long term (current) use of aspirin; Y90.9 Presence of alcohol in blood, level not specified

== ENCOUNTER 2019-03-26 21:13 | Emergency (ER) | payer OTHER ==
[~2019-03-26] VITALS: Ht 170.2 cm; Wt 88.0 kg
--- NOTE | 2019-03-26 21:54 | NUR ---
CALLED TO TRIAGE. NOT IN WAITING ROOM
--- NOTE | 2019-03-26 22:11 | NUR ---
PT BIBS. AAOX4. AMBULATORY. PT C/O CP SINCE 8PM. 01/05 PAIN NON RADIATING. +SOB+INTOXICATED. PLACED ON CONTINIOUS CARDIAC MONITORING AND PULSE OX. WILL CONTINUE TO MONITOR. AWAITING MD FOR EVAL.
--- NOTE | 2019-03-26 22:11 | NUR ---
Note celia in EDM - 03/26/19 at 2214 by EVICTOR PT BIBS. AAOX4. AMBULATORY. PT C/O CP SINCE 8PM. 01/05 PAIN NON RADIATING. +SOB+INTOXICATED. AWAITING MD FOR EVAL.
[2019-03-26 22:32] LABS: BASOPHILS # (AUTO) 0.1 /CMM (0.0-0.2); BASOPHILS % (AUTO) 1.9 % (0.0-2.0); EOSINOPHILS % (AUTO) 3.6 % (0.0-6.0); HEMATOCRIT 39 % (39-51); HEMOGLOBIN 13.3 g/dL (13.5-17.5); LYMPHOCYTES # (AUTO) 3.1 /CMM (0.8-4.8); MEAN CORPUSCULAR HGB CONC 34 g/dl (31.0-36.0); MEAN CORPUSCULAR VOLUME 100 fL (80-96); MONOCYTES # (AUTO) 0.6 /CMM (0.1-1.30); NEUTROPHILS # (AUTO) 2.9 /CMM (1.8-8.9); NEUTROPHILS % (AUTO) 41.5 % (43.0-81.0); PLATELET COUNT (AUTO) 291 /CMM (150-450); RED BLOOD CELL COUNT(AUTO) 3.89 MIL/uL (4.5-6.0)
--- NOTE | 2019-03-26 22:44 | NUR ---
x. ray tech at the bed side
[2019-03-26 22:46] LABS: CALCIUM, SERUM 8.2 mg/dL (8.5-10.1); CARBON DIOXIDE 28 mmol/L (21-32); CHLORIDE 103 mmol/L (98-107); CREATININE 0.7 mg/dL (0.6-1.3); GLUCOSE 110 mg/dL (74-106); POTASSIUM 3.7 mmol/L (3.5-5.1); SODIUM SERUM 138 mmol/L (136-145); UREA NITROGEN, BLOOD 7 mg/dL (7-18)
--- NOTE | 2019-03-27 00:06 | NUR ---
PT IN BED SLEEPING. BREATHING EVEN AND UNLABORED. CONNECTED TO CONTINIOUS CARDIAC [place]. WILL CONTINUE TO MONITOR.
--- NOTE | 2019-03-27 01:08 | NUR ---
Patient is resting comfortably in bed with eyes closed. Easily aroused. VSS
--- NOTE | 2019-03-27 02:44 | NUR ---
troponing was drawn
--- NOTE | 2019-03-27 04:18 | NUR ---
Patient is resting comfortably in bed with eyes closed. Easily aroused. VSS
--- NOTE | 2019-03-27 05:53 | NUR ---
Patient discharged to home in stable condition. Written and verbal after care instructions given. Patient verbalizes understanding of instruction. IV removed. Catheter intact and site benign. Pressure and 4x4 applied to site. No bleeding noted. PT ambulatory with a steady gait
[2019-03-27 05:59] VITALS: BP 114/66
== END 2019-03-27 06:02 | disposition home or self-care (01) ==
LOC: ER 21:20
DX: R07.89 Other chest pain (principal); F10.129 Alcohol abuse with intoxication, unspecified; I10 Essential (primary) hypertension; F10.10 Alcohol abuse, uncomplicated; F17.200 Nicotine dependence, unspecified, uncomplicated; Y90.9 Presence of alcohol in blood, level not specified; Z60.2 Problems related to living alone; Z79.82 Long term (current) use of aspirin; Z79.899 Other long term (current) drug therapy; Z88.0 Allergy status to penicillin
CPT/HCPCS: 36415; 71045-TC; 80048-TC; 84484-TC; 85025-TC

== ENCOUNTER 2019-04-02 22:20 | Emergency (ER) | payer MEDICAID, OTHER ==
[~2019-04-02] VITALS: Ht 172.7 cm; Wt 95.3 kg
--- NOTE | 2019-04-02 22:24 | NUR ---
CALLED FOR TRIAGE, NO ANSWER.
--- NOTE | 2019-04-02 22:30 | NUR ---
CALLED PT NAME IN WR X 3. NO ONE RESPONDED. WILL FOLLOW UP
--- NOTE | 2019-04-02 22:50 | NUR ---
PT BIBSELF. PT C/O "CHEST PAIN" BUT DENIES CP DURING TRIAGE AND ASSESSMENT. PT ADMITS TO ETOH. " I DRANK 5 BEERS BEFORE." PT PLACED ON MONITOR AND PULSE OX. NO ACUTE DISTRESS -CP. WILL CONTINUE TO MONITOR.
--- NOTE | 2019-04-02 23:18 | NUR ---
Patient is resting comfortably in bed watching tv. Easily aroused. VSS.
--- NOTE | 2019-04-02 23:26 | NUR ---
pt ambulated to restroom with assistance.
--- NOTE | 2019-04-02 23:56 | NUR ---
Patient is resting comfortably in bed. Easily aroused. VSS.
--- NOTE | 2019-04-03 00:20 | NUR ---
XRAY AT BEDSIDE.
--- NOTE | 2019-04-03 00:45 | NUR ---
Patient is resting comfortably in bed with eyes closed. Easily aroused. VSS.
--- NOTE | 2019-04-03 01:15 | NUR ---
Patient is resting comfortably in bed with eyes closed. Easily aroused. VSS.
--- NOTE | 2019-04-03 03:30 | NUR ---
Patient is resting comfortably in bed with eyes closed. Easily aroused. VSS.
--- NOTE | 2019-04-03 04:33 | NUR ---
Patient is resting comfortably in bed with eyes closed. Easily aroused. VSS.
[2019-04-03 05:36] VITALS: BP 112/62
--- NOTE | 2019-04-03 05:36 | NUR ---
Patient discharged to home in stable condition. Written and verbal after care instructions given. Patient verbalizes understanding of instruction. Pt ambulatory with a steady gait.
== END 2019-04-03 05:35 | disposition home or self-care (01) ==
LOC: ER 22:36
DX: F10.129 Alcohol abuse with intoxication, unspecified (principal); I10 Essential (primary) hypertension; F17.200 Nicotine dependence, unspecified, uncomplicated; Z88.0 Allergy status to penicillin; Z60.2 Problems related to living alone; Z79.899 Other long term (current) drug therapy; Z79.82 Long term (current) use of aspirin; Y90.9 Presence of alcohol in blood, level not specified
CPT/HCPCS: 71045; 93005; 99283; J7030

== ENCOUNTER 2019-04-04 20:29 | Emergency (ER) | payer MEDICAID, OTHER ==
[~2019-04-04] VITALS: Ht 170.2 cm; Wt 81.6 kg
[2019-04-04 20:30] VITALS: BP 127/76
[2019-04-04] MEDS ORDERED: IBUPROFEN 400 MG TABLET ONE (23:07)
[2019-04-04] MEDS: IBUPROFEN 400 MG TABLET PO ONE (23:11)
== END 2019-04-04 23:28 | disposition home or self-care (01) ==
LOC: ER 20:30
DX: S93.491A Sprain of other ligament of right ankle, initial encounter (principal); F10.10 Alcohol abuse, uncomplicated; F17.200 Nicotine dependence, unspecified, uncomplicated; I10 Essential (primary) hypertension; Y90.9 Presence of alcohol in blood, level not specified; Z88.0 Allergy status to penicillin; Z60.2 Problems related to living alone; Z79.82 Long term (current) use of aspirin; Z79.899 Other long term (current) drug therapy; X50.1XXA Overexertion from prolonged static or awkward postures, initial encounter; Y93.89 Activity, other specified; Y92.89 Other specified places as the place of occurrence of the external cause; Y99.8 Other external cause status
CPT/HCPCS: 73610-TC

== ENCOUNTER 2019-04-05 21:03 | Emergency (ER) | payer OTHER ==
[~2019-04-05] VITALS: Ht 170.2 cm; Wt 81.6 kg
[2019-04-05 21:22] VITALS: BP 126/85
== END 2019-04-05 21:58 | disposition home or self-care (01) ==
LOC: ER 21:04
DX: S46.811A Strain of other muscles, fascia and tendons at shoulder and upper arm level, right arm, initial encounter (principal); F10.129 Alcohol abuse with intoxication, unspecified; I10 Essential (primary) hypertension; F17.200 Nicotine dependence, unspecified, uncomplicated; Z88.0 Allergy status to penicillin; Z60.2 Problems related to living alone; Z79.899 Other long term (current) drug therapy; Z79.82 Long term (current) use of aspirin; X58.XXXA Exposure to other specified factors, initial encounter; Y93.89 Activity, other specified; Y92.89 Other specified places as the place of occurrence of the external cause; Y99.8 Other external cause status; Y90.9 Presence of alcohol in blood, level not specified

== ENCOUNTER → 2019-04-11 | Emergency (ER) | payer OTHER ==
--- NOTE | 2019-04-12 00:19 | NUR ---
CALLED PT IN WAITING ROOM. NO RESPONSE.
--- NOTE | 2019-04-12 01:19 | NUR ---
CALLED PT IN WAITING ROOM. NO RESPONSE.
--- NOTE | 2019-04-12 02:48 | NUR ---
CALLED PT IN WAITING ROOM. NO RESPONSE.
== END | disposition left against medical advice (07) ==
LOC: ER 23:36
DX: Z53.21 Procedure and treatment not carried out due to patient leaving prior to being seen by health care provider (principal)

== ENCOUNTER 2019-04-15 12:30 | Emergency (ER) | payer OTHER ==
[~2019-04-15] VITALS: Ht 177.8 cm; Wt 88.5 kg
[2019-04-15 12:35] VITALS: BP 108/60
== END 2019-04-15 19:34 | disposition home or self-care (01) ==
LOC: ER 12:32
DX: F10.29 Alcohol dependence with unspecified alcohol-induced disorder (principal); I10 Essential (primary) hypertension; F17.200 Nicotine dependence, unspecified, uncomplicated; Y90.9 Presence of alcohol in blood, level not specified; Z88.0 Allergy status to penicillin; Z60.2 Problems related to living alone; Z79.899 Other long term (current) drug therapy; Z79.82 Long term (current) use of aspirin

== ENCOUNTER 2019-04-19 22:42 | Emergency (ER) | payer OTHER ==
[~2019-04-19] VITALS: Ht 177.8 cm; Wt 88.5 kg
[2019-04-19 22:42] VITALS: BP 134/73
== END 2019-04-20 03:16 | disposition home or self-care (01) ==
LOC: ER 22:44
DX: G47.00 Insomnia, unspecified (principal); J02.9 Acute pharyngitis, unspecified; F10.10 Alcohol abuse, uncomplicated; I10 Essential (primary) hypertension; F17.200 Nicotine dependence, unspecified, uncomplicated; Y90.9 Presence of alcohol in blood, level not specified; Z88.1 Allergy status to other antibiotic agents; Z60.2 Problems related to living alone; Z79.82 Long term (current) use of aspirin; Z79.899 Other long term (current) drug therapy

== ENCOUNTER 2019-04-25 20:34 | Emergency (ER) | payer OTHER ==
[~2019-04-25] VITALS: Ht 167.6 cm; Wt 81.6 kg
[2019-04-25] MEDS ORDERED: IBUPROFEN 600 MG TABLET PO ONE ×2 (21:38→22:00)
--- NOTE | 2019-04-25 21:48 | NUR ---
Patient given Rx and written and verbal discharge instructions. Patient verbalizes understanding of instructions. Patient is ambulatory with steady gait. Refuses offer of [facility] placement. pt will arange his own transportation.
--- NOTE | 2019-04-25 21:50 | NUR ---
Patient discharged to home in stable condition. Written and verbal after care instructions given. Patient verbalizes understanding of instruction.
[2019-04-25 22:01] VITALS: BP 137/94
== END 2019-04-25 22:00 | disposition home or self-care (01) ==
LOC: ER 20:35
DX: M79.671 Pain in right foot (principal); I10 Essential (primary) hypertension; F10.10 Alcohol abuse, uncomplicated; F17.200 Nicotine dependence, unspecified, uncomplicated; Y90.9 Presence of alcohol in blood, level not specified; Z88.0 Allergy status to penicillin; Z60.2 Problems related to living alone; Z79.899 Other long term (current) drug therapy; Z79.82 Long term (current) use of aspirin
CPT/HCPCS: 73630-TC

== ENCOUNTER 2019-05-03 21:53 | Emergency (ER) | payer OTHER ==
[~2019-05-03] VITALS: Ht 172.7 cm; Wt 81.6 kg
--- NOTE | 2019-05-03 22:10 | NUR ---
PT BIBSELF TWISTING ANKLE WHILE WALKING. PT AMBULATORY WITH STEADY GAIT. PT AOX4 RR EVEN AND UNLABORED. NO SOB NOTED. NO NVD A THIS TIME. PT WAITING FOR MD TERRELL.
--- NOTE | 2019-05-04 02:50 | NUR ---
PT RESTING, APPEARS COMFORTABLE AT THIS TIME.
--- NOTE | 2019-05-04 05:37 | NUR ---
Patient discharged to home in stable condition. Written and verbal after care instructions given. Patient verbalizes understanding of instruction. Pt ambulatory with a steady gait
[2019-05-04 05:40] VITALS: BP 128/93
== END 2019-05-04 05:41 | disposition home or self-care (01) ==
LOC: ER 21:58
DX: S93.491A Sprain of other ligament of right ankle, initial encounter (principal); I10 Essential (primary) hypertension; F17.200 Nicotine dependence, unspecified, uncomplicated; Z88.0 Allergy status to penicillin; Z60.2 Problems related to living alone; Z79.899 Other long term (current) drug therapy; Z79.82 Long term (current) use of aspirin; X50.1XXA Overexertion from prolonged static or awkward postures, initial encounter; Y93.01 Activity, walking, marching and hiking; Y92.89 Other specified places as the place of occurrence of the external cause; Y99.8 Other external cause status
CPT/HCPCS: 73610-TC; 73630-TC

== ENCOUNTER 2019-05-06 17:47 | Emergency (ER) | payer OTHER ==
[~2019-05-06] VITALS: Ht 172.7 cm; Wt 81.6 kg
--- NOTE | 2019-05-06 18:20 | NUR ---
ETOH withdrawal, last drink this morning. PT in bed. no acute distress noted.
--- NOTE | 2019-05-06 18:42 | NUR ---
PT BEING AGGRESIVE ASKING FOR A BLOOD TEST.
--- NOTE | 2019-05-06 18:43 | NUR ---
PT VERBALIZED "I'M GONNA FUCK YOU UP FIRST" AND POINTED AT ME.
--- NOTE | 2019-05-06 19:32 | NUR ---
PT RESTING COMFORTABLY. WATCHING TV
--- NOTE | 2019-05-06 20:21 | NUR ---
PT left without signing discharge paper and homeless waiver. pt provided with tap card.
[2019-05-06 20:23] VITALS: BP 134/78
== END 2019-05-06 20:24 | disposition home or self-care (01) ==
LOC: ER 17:51
DX: S93.491A Sprain of other ligament of right ankle, initial encounter (principal); F10.10 Alcohol abuse, uncomplicated; I10 Essential (primary) hypertension; F17.200 Nicotine dependence, unspecified, uncomplicated; Y90.9 Presence of alcohol in blood, level not specified; Z88.0 Allergy status to penicillin; Z60.2 Problems related to living alone; Z79.82 Long term (current) use of aspirin; Z79.899 Other long term (current) drug therapy; X58.XXXA Exposure to other specified factors, initial encounter; Y93.89 Activity, other specified; Y92.89 Other specified places as the place of occurrence of the external cause; Y99.8 Other external cause status

== ENCOUNTER 2019-05-19 20:42 | Emergency (ER) | payer OTHER ==
[~2019-05-19] VITALS: Ht 172.7 cm; Wt 81.6 kg
[2019-05-19 20:49] VITALS: BP 114/69
[2019-05-19] MEDS ORDERED: IBUPROFEN 600 MG TABLET PO ONE ×2 (21:07→21:30)
== END 2019-05-19 22:04 | disposition home or self-care (01) ==
LOC: ER 20:44
DX: S63.591A Other specified sprain of right wrist, initial encounter (principal); F10.229 Alcohol dependence with intoxication, unspecified; G62.9 Polyneuropathy, unspecified; I10 Essential (primary) hypertension; F17.200 Nicotine dependence, unspecified, uncomplicated; Z88.0 Allergy status to penicillin; Z60.2 Problems related to living alone; Z79.82 Long term (current) use of aspirin; Z79.899 Other long term (current) drug therapy; W18.39XA Other fall on same level, initial encounter; Y93.89 Activity, other specified; Y92.89 Other specified places as the place of occurrence of the external cause; Y99.8 Other external cause status; Y90.9 Presence of alcohol in blood, level not specified
CPT/HCPCS: 73110; 73130-TC

== ENCOUNTER 2019-05-22 19:55 | Emergency (ER) | payer OTHER ==
[~2019-05-22] VITALS: Ht 172.7 cm; Wt 77.1 kg
[2019-05-22 19:55] VITALS: BP 137/68
== END 2019-05-22 20:49 | disposition home or self-care (01) ==
LOC: ER 19:59
DX: S93.491A Sprain of other ligament of right ankle, initial encounter (principal); I10 Essential (primary) hypertension; F17.200 Nicotine dependence, unspecified, uncomplicated; Z88.0 Allergy status to penicillin; Z79.82 Long term (current) use of aspirin; Z60.2 Problems related to living alone; Z79.899 Other long term (current) drug therapy; W01.0XXA Fall on same level from slipping, tripping and stumbling without subsequent striking against object, initial encounter; Y93.89 Activity, other specified; Y92.89 Other specified places as the place of occurrence of the external cause; Y99.8 Other external cause status
CPT/HCPCS: 73610-TC